=== PATIENT | male | born 1940 | race Caucasian/White ===

== ENCOUNTER 2018-04-15 14:31 | Emergency (ER) | payer MEDICARE, OTHER ==
--- NOTE | 2018-04-15 15:09 | ED Physician Documentation ---
PD HPI SKIN - Stated complaint Stated Complaint: RASH - Chief complaint Chief Complaint: Wound - History obtained from History obtained from: Patient - History of Present Illness Timing - onset: Last night (He has had a minimally painful rash on the medial thigh of the right leg since last night. No systemic symptoms, the family thinks it zoster and they are specifically worried that he will develop pain or vomiting as family members have had that with zoster and he they are traveling.) PD PAST MEDICAL HISTORY - Past Medical History Past Medical History: Yes Cardiovascular: Congestive heart failure, Atrial fibrillation Respiratory: Asthma - Past Surgical History Past Surgical History: Yes Ortho: Knee replacement, Spine surgery Derm: Skin cancer surgery - Present Medications Home Medications: Ambulatory Orders Medication Instructions Recorded Confirmed Acyclovir 800 mg PO 5XD 10 Days tablet 04/15/18 Albuterol Sulfate [Proair Hfa 8.5 gm 04/15/18 Inhaler] HYDROcod/ACETAM 5/325 [[place] 5/325] 1 - 2 ea PO Q6H PRN #15 tablet 04/15/18 Ondansetron HCl [Zofran] 4 mg PO Q6H PRN #10 tablet 04/15/18 Rivaroxaban [Xarelto] 10 mg 04/15/18 predniSONE [Deltasone] 20 mg PO [id number] #21 tab 04/15/18 - Allergies Allergies/Adverse Reactions: Allergies Allergy/AdvReac Type Severity Reaction Status Date / Time ciprofloxacin Allergy Mild Rash Verified 04/15/18 14:43 - Social History Does the pt smoke?: No Smoking Status: Never smoker Does the pt drink ETOH?: No Does the pt have substance abuse?: No - Immunizations Immunizations are current?: No Immunizations: TDAP >10years/unknown, Other immun current PD ED PE NORMAL - Vitals Vital signs reviewed: Yes - General General: Alert and oriented X 3, No acute distress - Derm Derm: Other (Classic zoster rash medial thigh on the right.) - Neuro Neuro: Alert and oriented X 3, Normal speech Results - Vitals Vitals: Vital Signs - 24 hr 04/15/18 14:38 Temperature 36.3 C L Heart Rate 72 Respiratory 16 Rate Blood Pressure 113/64 O2 Saturation 98 Oxygen O2 Source Room air PD MEDICAL DECISION MAKING - Sepsis Event Vital Signs: Vital Signs - 24 hr 04/15/18 14:38 Temperature 36.3 C L Heart Rate 72 Respiratory 16 Rate Blood Pressure 113/64 O2 Saturation 98 Oxygen O2 Source Room air Departure - Departure Disposition: Home, Self Care Clinical Impression: Herpes zoster Qualifiers: Herpes zoster complications: without complications Qualified Code(s): B02.9 - Zoster without complications Condition: Good Record reviewed to determine appropriate education?: Yes Instructions: ED Shingles Prescriptions: Acyclovir 800 mg PO 5XD 10 Days tablet HYDROcod/ACETAM 5/325 [[place] 5/325] 1 - 2 ea PO Q6H PRN #15 tablet PRN Reason: Pain Ondansetron HCl [Zofran] 4 mg PO Q6H PRN #10 tablet PRN Reason: Nausea / Vomiting predniSONE [Deltasone] 20 mg PO [id number] #21 tab Comments: Call your doctor to arrange a follow-up appointment, make the next available appointment. In the interim, return anytime if worse or if new symptoms develop.
[2018-04-15 15:21] VITALS: BP 107/80
== END 2018-04-15 15:19 | disposition home or self-care (01) ==
LOC: ED 14:31
DX: B02.9 Zoster without complications (principal); I50.9 Heart failure, unspecified; I48.91 Unspecified atrial fibrillation
CPT/HCPCS: 99283